=== PATIENT | female | born 1945 | race Caucasian/White ===

== ENCOUNTER 2019-01-12 08:30 | Day surgery (SDC) | payer OTHER, MEDICARE ==
[~2019-01-12] VITALS: Ht 157.5 cm; Wt 83.9 kg
[~2019-01-12 08:30] MED LIST: ALEVE220 M1 PO; ALEVE220 MG PO; ASPIR 8181 MG PO; ASPIRIN EC325 MG PO; ASPIRIN EC81 MG PO; BASAGLAR K100 UNIT/1 SUB-Q; CEFTIN500 MG PO; CEFUROXIME250 MG PO; CIPRO500 MG PO; FLAGYL500 MG PO; FUROSEMIDE80 MG PO; GLIPIZIDE ER2.5 MG PO; GLIPIZIDE10 MG PO; GUAIFENESIN400 MG PO; HYDROCODON-ACE1 EA11 PO; IBUPROFEN400 MG PO; IPRAT-ALBUT 0.5-3 ML INH; KLOR-CON M2020 MEQ PO; LANTUS100 UNITS/ SUB-Q; LASIX20 MG PO; LASIX40 MG PO; LEVOTHYROXINE75 MCG PO; LIPITOR40 MG PO; MAGNESIUM400 MG PO; METFORMIN HCL1000 MG PO; METFORMIN HCL500 M1 PO; METOPROLOL TAR100 MG PO; METOPROLOL TART50 MG PO; MIRALAX17 GM PO; MULTIVITAMINS1 EAC7 PO; NITROSTAT0.4 MG SL; NORCO 5-325 TA1 EACH PO; NORCO 7.5-3251 EACH PO; OMEPRAZOLE40 MG PO; OXYCODONE HCL5 MG PO; POTASSIUM CHLO10 ME1 PO; PROLENSA1.6 ML OP; SIMVASTATIN20 MG PO; TOPROL XL50 MG PO; TRAMADOL HCL50 MG PO; TRIAMCINOLONE A15 GM TOP; TYLENOL EXTRA500 M1 PO; TYLENOL EXTRA500 MG PO; VALERIAN450 MG PO; VIMOVO 500-201 EACH PO; VITAMIN B122500 MCG PO; VITAMIN D2000 UNI1 PO; XARELTO10 MG PO; ZOCOR20 MG PO
[2019-01-12] MEDS ORDERED: NAPROXEN500 MG PO (09:31)
[2019-01-12] MEDS ORDERED: HYDROCODON-ACE1 EA11 PO (09:31)
--- NOTE | 2019-01-12 10:02 | NUR ---
01/12/19 1002 Tea Allan 1190 PT ARRIVED IN PACU SLEEPY WITH NO C/O'S. BLOOD SUGAR 155 ON ARRIVAL. 0950 ICE TO L KNEE. ENCOURAGED COUGH, DEEP BREATHING. 1000 O2 AT 2L VIA NC PLACED. TAKING SIPS OF WATER.
--- NOTE | 2019-01-12 10:21 | NUR ---
PT IS BACK TO DS FROM PACU. DAUGHTERS ARE AT THE BEDSIDE. WATER ON BEDSIDE TABLE. PT IS REQUESTING COFFEE. CALL LIGHT WITHIN REACH. NO ADDITIONAL NEEDS.
--- NOTE | 2019-01-12 11:20 | NUR ---
PT IS REPORTING NAUSEA. SHE IS GIVEN ALCOHOL PREP PAD. PT IS AGREEABLE TO TRYING CRACKERS. SHE IS WONDERING WHAT HER CBG IS. DAUGHTERS STILL AT BEDSIDE. CALL LIGHT WITHIN REACH NO ADDITIONAL NEEDS AT THIS TIME.
--- NOTE | 2019-01-12 12:42 | NUR ---
YELLOWING BRUISE NOTED TO PATIENT'S RIGHT ANTERIOR NICHOLS. PATIENT REPORTS SHE FELL AT HOME WHILE STANDING ON A BUNK BED LADDER. PATIENT IS UP TO THE BATHROOM WITH MY STANDBY. SHE AMBULATES WELL AND REPORTS "A LITTLE DIZZINESS."
--- NOTE | 2019-01-12 12:53 | NUR ---
OXIMETER CONNECTED AFTER PATIENT AMBULATES TO THE BATHROOM AND SHE IS 89% PATIENT REITERATES COPD AND STATES "THIS HAPPENS AFTER SURGERY." PATIENT ENCOURAGED TO COUGH AND DEEP BREATHE PERIODICALLY AND SHE VERBALIZES UNDERSTANDING. DISCHARGE INSTRUCTIONS HAVE BEEN GIVEN AND PATIENT VERBALIZES UNDERSTANDING. ICE BAG RENEWED. PATIENT IS GETTING DRESSED.
--- NOTE | 2019-01-12 13:57 | NUR ---
PT IS TAKEN TO CAR VIA WC, SHE IS ABLE TO TRANSFER HERSELF FROM WC TO CAR.
--- NOTE | 2019-01-12 15:30 | OR ---
[facility] [address] [place], [place] [address] Signed DATE OF OPERATION: 01/12/2019 SURGEON: An Soler MD PREOPERATIVE DIAGNOSIS: Medial meniscus tear, right knee. POSTOPERATIVE DIAGNOSIS: Medial meniscus tear, right knee. PROCEDURE PERFORMED: Right knee arthroscopy with partial medial meniscectomy. SOLO TRUCK DRIVER: Coni Andres PA-C. Coni was present and critical for all portions of procedure. ANESTHESIA: General. BLOOD LOSS: Minimal. TOURNIQUET TIME: None. BRIEF HISTORY: Meg is a 73-year-old female with pain and locking in her knee. She had only grade 1 to grade 2 changes on her x-rays and her MRI showed a large inferiorly folded medial meniscus tear. Risks and benefits of operative treatment were discussed with her and she elected to proceed. Once consent was obtained, she was taken to the operating room. After adequate anesthesia, she was placed on operating room table. All downside pressure points were well padded. The right leg was flexed, abducted, and externally rotated on a well-padded leg leavitt. Left was placed in well-padded proximal thigh leavitt. The portal sites were pre-injected using 0.25% Marcaine with epinephrine under alcohol prep. The leg was then prepped and draped in a standard sterile fashion. The standard inferolateral and superolateral portals were made. The scope was introduced into the knee. ARTHROSCOPIC FINDINGS: Electronically Signed By: AN SOLER MD 01/12/19 1530 PATIENT NAME: MEG SEGURA OPERATIVE REPORT DATE OF : 45 REPORT #: [id number] PHYSICIAN: AN SOLER MD PCP: REYNA MEADOWS MD REPORT IS CONFIDENTIAL AND NOT TO BE RELEASED WITHOUT AUTHORIZATION [facility] [address] [place] [id number] Signed Moderate synovitis was noted throughout the knee. 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 Medial and lateral gutters were clear. ACL was intact. The lateral compartment was intact with only grade 1 chondromalacia to the lateral femoral condyle. The medial compartment showed grade 3 chondromalacia to the femur, grade 1 changes to the tibia. There was a large infolded medial meniscus tear with significant surrounding synovitis. DESCRIPTION OF OPERATION: Standard inferomedial portal was made after localization using a spinal needle. The straight biter was then used to trim the meniscus tear back and flipped the undersurface up and this was shaved off using the shaver and all debris was evacuated. The meniscus was then smoothed out and feathered, and the scope was withdrawn. Portals were closed with 3-0 nylon and dressed with Adaptic ABD and Yusef wrap. We injected the knee with 60 mg Toradol at the end of the case. She tolerated the procedure well. All sponge, needle, and instrument counts were correct. An Soler MD BA/ROBLESL /[id number] Copies: ~ Electronically Signed By: AN SOLER MD 01/12/19 1530 PATIENT NAME: MEG SEGURA OPERATIVE REPORT DATE OF : 45 REPORT #: [id number] PHYSICIAN: AN SOLER MD PCP: REYNA MEADOWS MD REPORT IS CONFIDENTIAL AND NOT TO BE RELEASED WITHOUT AUTHORIZATION
== END 2019-01-12 13:45 | disposition home or self-care (01) ==
LOC: DS 08:30 → OPS 08:30 → DS 09:00 → OPS 09:45 → DS 09:45 → OPS 11:30
PROVIDERS: Specialist
PROC: 0SBC4ZZ Excision of Right Knee Joint, Percutaneous Endoscopic Approach (ICD-10-PCS; principal; 2019-01-12 13:30)
DX: S83.241A Other tear of medial meniscus, current injury, right knee, initial encounter (principal); M65.9 Synovitis and tenosynovitis, unspecified; M22.41 Chondromalacia patellae, right knee; E11.9 Type 2 diabetes mellitus without complications; I10 Essential (primary) hypertension; E78.00 Pure hypercholesterolemia, unspecified; E03.9 Hypothyroidism, unspecified; J44.9 Chronic obstructive pulmonary disease, unspecified; E66.9 Obesity, unspecified; G47.33 Obstructive sleep apnea (adult) (pediatric); I11.0 Hypertensive heart disease with heart failure; I50.9 Heart failure, unspecified; Z79.4 Long term (current) use of insulin; Z88.0 Allergy status to penicillin; Z88.2 Allergy status to sulfonamides; Z99.89 Dependence on other enabling machines and devices; Z68.33 Body mass index [BMI] 33.0-33.9, adult; Z79.82 Long term (current) use of aspirin; Z79.899 Other long term (current) drug therapy; Z87.891 Personal history of nicotine dependence
CPT/HCPCS: 01400; A9270; J0690; J1100; J1885; J2250; J2310; J2405; J2704; J2765; J3010; J7121

== ENCOUNTER 2019-05-30 17:27 | Inpatient (IN) | payer MEDICARE, OTHER ==
[~2019-05-30] VITALS: Ht 157.5 cm; Wt 84.8 kg
[~2019-05-30 17:27] MED LIST changes: +MAGNESIUM400 M1 PO; -MAGNESIUM400 MG PO; -MULTIVITAMINS1 EAC7 PO; +MULTIVITAMINS1 EAC8 PO; +NAPROXEN500 MG PO
[2019-05-30] MEDS ORDERED: MUCINEX600 MG PO (17:54)
--- NOTE | 2019-05-30 23:48 | NUR ---
PT INFORMED SHE HAS 15 MIN LEFT UNTIL NPO.
--- NOTE | 2019-05-31 00:02 | NUR ---
PT ARRIVED TO [facility] AT 2135 ON THE STRETCHER FROM ER. SHE WAS ABLE TO TRANSFER HERSELF TO BED. VOIDED. DENIED NAUSEA AND STATED HER PAIN IMPROVED. IV PATENT, FLUSHED WITH 10 ML OF NS WITHOUT ANY DIFFICULTIES, DRESSING INTACT. STARTED PT ON LR ORDERED. BG UPON ARRIVAL TO [facility] 55. PT GOT SNACKS, BG WENT UP TO 147. VSS. MAINTANS SPO2 92%-93% ON RA. PT IS NPO FROM MIDNIGHT. LIQUIDS AND FOOD REMOVED OUT OF THE ROOM PT COOPERATIVE. WITH EYES CLOSED, RESTING COMFORTABLY. NO NEEDS AT THE MOMENT. CALL LIGHT IN REACH.
--- NOTE | 2019-05-31 00:39 | NUR ---
pt reported nausea. see mar for medications administration. after being medicated stated she "feels better". will be back to reassess.
--- NOTE | 2019-05-31 02:12 | NUR ---
pt awake, bg 102, no insulin needed per sliding scale. SPO2 88-89% ON RA. PUT PT ON 1.5L OF O2. SPO2 WENT UP TO 93-94%.PT DENIED PAIN, NO NAUSEA. NO NEEDS AT THE MOMENT. CALL LIGHT IN REACH.
--- NOTE | 2019-05-31 05:22 | NUR ---
PT OPENS HER EYES TO VOICE, ALERT, ORIENTED. NO NAUSEA, REPORTED SOME DISCOMFORT. ABDOMEN IS TENDER, BOWEL SOUNDS HYPERACTIVE IN UPPER QUADRANT. EDEMA NOTED IN HANDS BILATERAL. BP 106/47. STILL ON 1.5 L OF O2. AMBULATEDTO THE BATHROOM, SPO2 DROPPED TO 98% ON RA. PT WAS HELPED WITH PREP FOR SURGERY,CLEAN GAWN WAS PROVIDED.
--- NOTE | 2019-05-31 06:38 | NUR ---
PT REPORTED NAUSEA DURING THIS SHIFT. SEE MAR ADAN MEDCIATION ADMINISTRATION. DENIED PAIN BUT REPORTED DISCOMFORT IN HER UPPER ABDOMEN. BOWEL SOUNDS PRESENT, HYPERACTIVE IN UPPER QUADRANTS. PT AMBULATED TO THE BATHROOM TWICE, VOIDED WITHOUT DIFFICULTIES. PT HAD SLEEP APNEA, USES CPAP AT HOME. SPO2 DROPPED DOWN TO 86%. PUT PT ON 1.5 L OF O2. SPO2 UP TO 92-93%. PT DONE WITH PREOP.
--- NOTE | 2019-05-31 07:38 | NUR ---
REPORT RECEIVED FROM NUSRAT CROWLEY. PT AWAKE, SITTING UP IN BED. STATES SHE FEELS BETTER THAN LAST NIGHT.
--- NOTE | 2019-05-31 09:15 | NUR ---
PT LEFT FOR SURGERY AT 0900. SEE MORNING ASSESSMENT. PT WAS HAVING NAUSEA, GAVE 4 MG ZOFRAN WAS NOT FEELING MUCH RELIEF YET. ANTIBIOTICS HANGING. SAO2 AT 97% ON 1.5 L. MAGNESIUM COMPLETE.
--- NOTE | 2019-05-31 10:41 | NUR ---
PT TAKEN TO OR. WILL FOLLOW UPON RETURN FROM PACU
--- NOTE | 2019-05-31 11:40 | CONS ---
[facility] [address] [place], [place] [address] Signed DATE OF CONSULTATION: 05/31/2019 ADDITIONAL REFERRING PHYSICIAN: Ira Salguero MD CHIEF COMPLAINT: Right upper quadrant abdominal pain. 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 I helped her with a sigmoid colectomy with symptomatic diverticular disease. She still lives in her house out in [place] with her granddaughter. She drives and gets around quite well. She came to the emergency room yesterday with significant right upper quadrant and epigastric abdominal pain. It was associated with nausea and dry heaves. She also had not been able to eat or drink well that day. She had very little urine output. On exam, she was tender in the right upper quadrant and the epigastric area. White count was 10.6 with a sugar of 239. Her urinalysis was unremarkable and her liver function tests were unremarkable as well along with the lipase. Albumin is good at 4.1. She had an ultrasound of right upper quadrant. Sure enough, she has at least one stone and debris in the in the gallbladder with an unremarkable gallbladder wall an unremarkable common bile duct. There was no pericholecystic fluid. She stayed all day in our emergency room with IV fluids and pain control. Unfortunately, her symptoms would not wandy. Consequently, I was asked to admit her last evening after change in shifts by the ER physicians. She was given Levaquin and Rocephin and maintained on IV fluids overnight. She said this morning the pain is a little better, but she said the nausea is just terrible. PAST MEDICAL HISTORY: Diabetes, myocardial infarction, paroxysmal tachycardia, congestive heart failure, hypertension, hypercholesterolemia, gastroesophageal reflux disease, COPD, obstructive sleep apnea, hypothyroidism. PAST SURGICAL HISTORY: Adenoidectomy, left rotator cuff repair by Dr. Charles Soler in December 2018, cataract surgery, right total hip replacement, right total shoulder replacement, sigmoid colectomy for diverticular disease with Dr. Cadena. SOCIAL HISTORY: She quit smoking around age 60. She does not drink. Dr. Reyna You is her primary care provider. She has her hearing instrument specialist through [facility]. She is a retired registered nurse with two daughters. Her oldest daughter Agnes is at [phone]. She also has a younger daughter Ronda. She still drives herself in and out of town and so forth. She prefers to [facility]. Electronically Signed By: SUGAR CADENA MD 05/31/19 1140 PATIENT NAME: MEG SEGURA CONSULTATION DATE OF : 45 REPORT #: [id number] PHYSICIAN: SUGAR CADENA MD PCP: REYNA YOU MD REPORT IS CONFIDENTIAL AND NOT TO BE RELEASED WITHOUT AUTHORIZATION [address] [address] Signed FAMILY HISTORY: Mom had diabetes, had a stroke at around age 65 and by age 72. Dad had coronary artery disease. Her older daughter Agnes has diabetes and had four cardiac stents. REVIEW OF SYSTEMS: She had 10 systems reviewed and we talked about her SD, a number of years ago, the diabetes, arrhythmias, and heart failure. She thinks her heart actually is pretty strong. Her last echocardiogram was about two years ago through [facility]. We are trying to obtain those results currently. She told me she can walk in and out of the parking lot in [employer] and so forth and does fine without shortness of breath. We also talked about her orthopedic surgeries and she did well with those particular last fall. We just did her colectomy five or six years ago and she did well with that. ALLERGIES: DuoNeb, penicillin, sulfa. MEDICATIONS: Naproxen, omeprazole, multivitamin, glipizide, metformin, nitroglycerin, levothyroxine, metoprolol, vitamin B12, aspirin, atorvastatin, vitamin D, magnesium oxide, potassium chloride, Lasix, insulin, and guaifenesin. PHYSICAL EXAMINATION: VITAL SIGNS: Her blood pressure is 106/48, heart rate 86, respiratory rate 18, temperature 97.7. She is 96% on room air. She is 5 feet 2 inches, 84 kg. GENERAL: Meg is a 74-year-old female appears her stated age. She is an excellent historian. Given the fact, she is a retired clinical registered nurse, she does not appear systemically ill or toxic. She is not jaundiced. She is not short of breath. She has no pursed lips. No increased work of breathing. LUNGS: Generally clear to auscultation bilaterally. HEART: Regular rate and rhythm without murmurs. ABDOMEN: Obese and soft. No evidence of incisional hernia. She is a little tender in the right upper quadrant epigastric area. LABORATORY DATA: Her white blood cell count 10.6, hemoglobin 13, neutrophils 78, platelets 335. BUN 17, creatinine 0.79, glucose between 55 and 147. Urinalysis was unremarkable. Magnesium low at 1.2 and being replaced. Total bilirubin normal at 0.4, AST 16, ALT 14, alkaline phosphatase 64, albumin 4.1, lipase 26. RADIOGRAPHIC STUDIES: Ultrasound of the right upper quadrant reviewed and she has mobile stone and debris, but the common bile duct is unremarkable. The gallbladder wall is not thickened. There is no pericholecystic fluid. Electronically Signed By: SUGAR CADENA MD 05/31/19 1140 PATIENT NAME: MEG SEGURA CONSULTATION DATE OF : 45 REPORT #: [id number] PHYSICIAN: SUGAR CADENA MD PCP: REYNA YOU MD REPORT IS CONFIDENTIAL AND NOT TO BE RELEASED WITHOUT AUTHORIZATION [facility] [address] [place], [place] [address] Signed ASSESSMENT AND PLAN: Meg is a 74-year-old female, who presents with probably chronic cholecystitis and cholelithiasis with biliary colic and nausea. Even with IV fluids, pain control, some antibiotic she is still having significant nausea and the pain is yet to wandy. I had a long discussion with Meg regarding the location and function of the gallbladder. We discussed laparoscopic versus open cholecystectomy. There is risk including, but not limited to bleeding, infection, scarring, change in contour of the skin, damage to bowel damage to main bile duct, incisional hernias and other unforeseen comorbidities such as pulmonary, cardiac, and deep vein thrombosis. We are also in the midst of our coronavirus pandemic. She knows that 98% of these folks would go home within 2-6 hours following the surgery. She has expressed understanding and would like to proceed with remove of the gallbladder. Sugar Cadena MD ALB/MODL /[id number] cc: MD Sugar Edwards MD Copies: REYNA YOU MD, ANDREW L MD ~ Electronically Signed By: SUGAR CADENA MD 05/31/19 1140 PATIENT NAME: MEG SEGURA CONSULTATION DATE OF : 45 REPORT #: [id number] PHYSICIAN: SUGAR CADENA MD PCP: REYNA YOU MD REPORT IS CONFIDENTIAL AND NOT TO BE RELEASED WITHOUT AUTHORIZATION
--- NOTE | 2019-05-31 11:58 | NUR ---
05/31/19 1158 Sheets,Pura 1149 PT ARRIVED TO PACU ON 6L VIA MASK, RESP EVEN AND UNLABORED. PT WAKES TO TACTILE STIMULI AND IS REORIENTED TO PACU. PT DENIES PAIN AND FALLS BACK TO SLEEP, VSS. 1157 PT REPORTS NAUSEA.
--- NOTE | 2019-05-31 12:47 | NUR ---
PT BACK FROM SURGERY. ARRIVED SLEEPING, RESPIRATIONS EVEN AND NON LABORED. PT AWAKES TO VERBAL STIMULI. VITAL SIGNS ARE STABLE AT THIS TIME, CPOX INTACT OXYGEN SAT IS 93% ON 4 L. X4 LAP SITED NOTED TO ABD; CDI-SEE ASSESSMENT CHARTING. PT DENIES NEED TO VOID. NO REPORTED PAIN. PERSONAL SUPPLIES AND CALL LIGHT WITHIN REACH. ICE OVER INCISIONAL SITES. SCD'S INTACT. PERSONAL SUPPLIES AND CALL LIGHT WITHIN REACH.
--- NOTE | 2019-05-31 13:45 | NUR ---
PT REPORTING SHARP CHEST PAIN RADIATING TO LEFT SHOULDER, PAIN LEVEL OF 7/10. THIS RN AND TYLER, RN AT BEDSIDE. DR. CADENA IMMEDIATELY NOTIFIED, NEW ORDERS RECEIVED; EKG STAT, TROPONIN, CBC, MAG, PHOS. INSTRUCTED BY DR. CADENA TO CALL HOSPITALIST FOR CONSULT. DR. LINN CALLED AND RAPID RESPONSE INITIATED. TORB TO ADMIIN MORPHINE 2MG IVP. MORPHINE 2MG IVP ADMIN. 1350 DR. LINN TO ROOM FOR THIS REPORTED CHEST PAIN. RAPID RESPONSE TEAM PRESENT; SAMMY, RN, MICHELE, RN, HUNG RN, DEMI, RT, PHARMACY AND THIS RN. EVENTS OCCURED FOLLOWED; EKG AND LAB COMPLETED. 5MG IVP LOPRESSOR ADMIN AND FLUSHED, EKG READ SR-SEE EKG. @1400 BG OF 218, NITRO 1INCH ORDERED, LABS DRAWN. @1401 PT CONTINUES TO REPORT 6/10 CHEST PAIN; 1INCH NITRO PLACED, PT DENIES SOB. @1402 SECOND DOSE 5MG LOPRESSOR IVP ORDERED AND GIVEN, 10ML FLUSH COMPLETED. @1404 PAIN REPORTED 5/10 CHEST PAIN; ANOTHER NITRO PATCH 1INCH ORDERED AND PLACED. @1408 MAGNESIUM 2MG PIGGYBACK ORDERED AND PHARMCY TO BRING, 3RD DOSE OF 5MG IVP LOPRESSOR ORDERED AND ADMIN WITH FLUSH, PROTONIX 40MG IVP ORDERED. @1412 3 (81)MG PO ASA ORDERED. @1413 MAGNESIUM 2MG IVP STARTED IV PIGGYBACK STARTED WELL PROTONIX 40MG IVP ADMIN PER DOC ORDER. ASA (3) 81MG PO ADMIN; CHEST PAIN REPORTED 3/10 NOW. @1418 2ND EKG ORDERED AND COMPLETED. @1422 MORPHINE 2MG IVP ADMIN PER DOC ORDER. CHEST PAIN REPORTED AT 2-3/10 NOW. NEW ORDER FOR TELE AND ECHO. NAUSEA AND PAIN REPORTED OK @ 1429. @1427 VORD FOR FLUIDS TO DECREASED TO TKO AND CHEST PAIN IS 2/10, NO ARM RADIATION AND NAUSEA REPORTED. TELE PLACED. CPOX INTACT. PT AWAKE AND INTERACTIVE WITH STAFF. NO NEW ORDERS AT THIS TIME. PT INSTRUCTED TO CALL STAFF IF SHE HAS ANY NEEDS. ECHO STUDY IN PROCESS AT THIS TIME. VS ARE STABLE. WILL CONTINUE TO MONITOR.
--- NOTE | 2019-05-31 13:49 | NUR ---
PT 1 HOUR VS RETURNING FROM SURGERY DONE. HR 112. PT COMPLAINING OF CHEST PAIN. STATES AT HOME SHE TAKE NITRO FOR IT. NS. DIMA CALLING DR TO NOTIFY AND SEE ABOUT ORDERS. EKG ORDERED.
--- NOTE | 2019-05-31 14:00 | NUR ---
Attempted to see pt, but multiple staff members are in her room. Will return later. Notified rapid response team has been called.
--- NOTE | 2019-05-31 14:09 | NUR ---
RAPID RESPONSE TEAM CALLED FOR PT. OFFERED PRAYER FOR PT AND TEAM. WILL FOLLOW UP
--- NOTE | 2019-05-31 14:58 | NUR ---
ECHO IN PROCESS AT THIS TIME.
--- NOTE | 2019-05-31 15:14 | NUR ---
MED REC COMPLETE
[2019-05-31] MEDS ORDERED: NORCO 5-325 TA1 EACH PO (15:16)
--- NOTE | 2019-05-31 15:51 | NUR ---
PT. IN BED. RT SETTING UP CPAP. ECHO JUST FINISHED WITH PT. NAUSEA WITH MOVEMENT STILL. PAIN A 4/10 WHICH IS A TOLERABLE NUMBER FOR HER. JELLO AND WATER ON TABLE. NO CHEST PAIN OR SOB.
--- NOTE | 2019-05-31 16:00 | NUR ---
PT REPORTS STILL FEELING NAUSIOUS. SHE DOES NOT WANT ANY MEDICATION FOR THIS AT THIS TIME.
--- NOTE | 2019-05-31 16:34 | NUR ---
RAPID RESPONSE VS PLACED IN ELECTRONIC CHART, HOWEVER THEY WILL NOT RECORD FOR THE CORRECT TIME. RAPID RESPONSE FLOW SHEET PLACED IN CHART FOR RECORDS.
--- NOTE | 2019-05-31 17:04 | NUR ---
PT SITTING UP IN BED, A&OX4. PT DENIES SOB, OXYGEN SAT 92% ON 4L NC. PT DENIES CHEST PAIN. VS STABLE AT THIS TIME. DINNER ORDERED. PT DENIES NEED TO VOID. WILL CONTINUE TO MONITOR. DRESSING(s) TO ADB ARE ALL CDI. ICE OVER INCISIONS. CALL LIGHT WITHIN REACH.
--- NOTE | 2019-05-31 18:40 | NUR ---
IV NITROGLYCERIN AND HEPARIN DRIP STARTED- SEE EMAR. NEW IV STARTED FOR HEPARIN DRIP. PT'S VS TAKEN PRIOR TO STARTING NITRO DRIP. VORB TO REMOVE NITRO PATCHED PRIOR TO STARTING NITRO DRIP; REMOVED PRIOR TO INITIATING NITRO IV DRIP.
--- NOTE | 2019-05-31 18:45 | NUR ---
REPORT PROVIDED TO EMS TRANSFER CREW. PT LEFT UNIT IN THEIR CARE.
--- NOTE | 2019-05-31 21:36 | EKG ---
[facility] [address] [facility] [place] [address] Signed Normal sinus rhythm Minimal voltage criteria for LVH, may be normal variant T wave abnormality, consider lateral ischemia Abnormal ECG When compared with ECG of 01-JAN-2019 11:22, Criteria for Septal infarct are no longer present T wave inversion no longer evident in Anterior leads Confirmed by DENISSE LINN MD ([id number]) on 05/31/2019 9:36:40 PM Electronically Signed By: DENISSE LINN MD 05/31/19 2136 PATIENT NAME: RENEE SEGURA Electrocardiogram DATE OF : 45 PHYSICIAN: DENISSE LINN MD REPORT #: [id number] REPORT IS CONFIDENTIAL AND NOT TO BE RELEASED WITHOUT AUTHORIZATION
--- NOTE | 2019-05-31 21:37 | EKG ---
[facility] [address] [facility] [place], [place] [address] Signed Normal sinus rhythm T wave abnormality, consider lateral ischemia Prolonged QT Abnormal ECG When compared with ECG of 31-MAY-2019 13:54, (Unconfirmed) No significant change was found Confirmed by DENISSE LINN MD ([id number]) on 05/31/2019 9:36:57 PM Electronically Signed By: DENISSE LINN MD 05/31/19 2137 PATIENT NAME: RENEE SEGURA Electrocardiogram DATE OF : 45 PHYSICIAN: DENISSE LINN MD REPORT #: [id number] REPORT IS CONFIDENTIAL AND NOT TO BE RELEASED WITHOUT AUTHORIZATION
--- NOTE | 2019-05-31 21:37 | EKG ---
[facility] [address] [place] [address] Signed Sinus tachycardia Nonspecific T wave abnormality Abnormal ECG When compared with ECG of 31-MAY-2019 08:19, (Unconfirmed) Vent. rate has increased BY 40 BPM Confirmed by DENISSE LINN MD ([id number]) on 05/31/2019 9:36:49 PM Electronically Signed By: DENISSE LINN MD 05/31/19 2137 PATIENT NAME: RENEE SEGURA Electrocardiogram DATE OF : 45 PHYSICIAN: DENISSE LINN MD REPORT #: [id number] REPORT IS CONFIDENTIAL AND NOT TO BE RELEASED WITHOUT AUTHORIZATION
--- NOTE | 2019-06-01 06:27 | OR ---
[facility] [address], [place] [address] Signed DATE OF OPERATION: 05/31/2019 SURGEON: Sugar Cadena MD PREOPERATIVE DIAGNOSES: Acute on chronic cholecystitis with cholelithiasis. POSTOPERATIVE DIAGNOSES: Acute on chronic cholecystitis with cholelithiasis. PROCEDURE: Laparoscopic cholecystectomy with intraoperative cholangiogram. ESTIMATED BLOOD LOSS: Minimal. FINDINGS: Meg had a friable gallbladder wall. The intraoperative cholangiogram was unremarkable. She had three stones, each measuring 4 to 6 mm in diameter. She also had periumbilical adhesions from her previous open sigmoid colectomy for diverticular disease. It took just a few minutes to work our way around those adhesions to place the Liyah trocar. INDICATIONS: Mge is a 74-year-old female, who is now a retired registered nurse. I have known Meg for quite a few years. Five to seven years ago, I did her open sigmoid colectomy for diverticular disease. She said she is doing much better and has good bowel movements. In the meantime, she had her left shoulder surgery last fall. She talked about her cardiac evaluation with Dr. Flower. We did review that. It goes back to 2017. In that regard, her heart, lungs and pulmonary status really have not changed. She came to us with 1-day history of severe epigastric and right upper quadrant abdominal pain with nausea and dry heaves. In the emergency room, her vital signs were fine. She seemed to be tender in the right upper quadrant and the epigastric area. White count was 10.6 and her liver function tests were fine. She had an ultrasound of right upper quadrant performed and there were several mobile stones with some sludge and debris. The gallbladder wall was not thickened. The common bile duct was not dilated. I have been asked to admit her as a general surgeon on-call. She was given antibiotics overnight. I met her early this morning. We had a long discussion regarding her current findings. We discussed the location and of function of the gallbladder. We discussed laparoscopic versus open cholecystectomy. She understands expected intraop Electronically Signed By: SUGAR CADENA MD 06/01/19 0627 PATIENT NAME: MEG SEGURA OPERATIVE REPORT DATE OF : 45 REPORT #: [id number] PHYSICIAN: SUGAR CADENA MD PCP: REYNA MEADOWS MD REPORT IS CONFIDENTIAL AND NOT TO BE RELEASED WITHOUT AUTHORIZATION [facility] [address], [place] [address] Signed and postop course. There is risk of surgery including, but not limited to bleeding, infection, scarring, change in contour of the skin, damage to bowel, damage to main bile duct, incisional hernias and other unforeseen seen comorbidities including cardiac and pulmonary issues along with deep vein thrombosis. Also, we are in the midst of the valerio pandemic and she is well aware of that in addition. She had expressed understanding and wished to proceed. PROCEDURE NOTE: Meg was taken into the operating room and placed in the supine position under general endotracheal tube anesthesia. She was already on preoperative antibiotics along with subcutaneous heparin. SCDs were in place. She was prepped and draped in the usual sterile fashion. It took a few extra minutes to place a Liyah trocar above the umbilicus to a short vertical incision due to the adhesions. We had placed the Liyah trocar and point it toward the left upper quadrant and bring it underneath the falciform ligament over to get around some of the adhesions around the umbilicus. Otherwise, the upper abdomen was completely free of adhesions. We then placed the two right subcostal and subxiphoid trocar sites. Trocars without difficulty. The gallbladder was grasped and elevated in the right upper quadrant. The triangle of Calot was dissected free and a clip had been placed across the cystic artery and it was divided. The intraoperative cholangiocatheter was inserted into the cystic duct. An intraoperative cholangiogram was then performed. The contrast flowed nicely through the duct and out into the duodenum. There was no evidence of any filling defects. With pressure there was just a little bit of extravasation of contrast around the cystic duct. After this, the cystic duct stump was secured with a PDS Endoloop and 2 clips were placed across the cystic duct stump to deanna its location. The gallbladder was then removed from the gallbladder fossa with the help of cautery and placed into the EndoCatch bag. The gallbladder fossa in the right upper quadrant irrigated and suctioned out until clear. We used our laparoscopic suturing device to pass 0 Vicryl suture on either side of the fascia of the subxiphoid trocar site. This was tied down to close this fascia primarily. After this, all the gas was allowed to escape and all the trocars were removed. We then closed the midline fascia with multiple interrupted [id number] and simple 0 Vicryl sutures. That fascial incision was about twice as long as normal. It was probably 2.5 to 3 cm in length total. We could not appreciate any damage to the underlying bowel. Local anesthetic was then copiously injected into all trocar sites. The skin and dermis of each trocar site were then closed with interrupted 3-0 subcuticular Monocryl sutures. Dry gauze and tape were applied in all incisions. Meg was awakened from anesthesia, extubated in the OR, and taken to recovery room in stable condition. Sugar Cadena MD Electronically Signed By: SUGAR CADENA MD 06/01/19 0627 PATIENT NAME: MEG SEGURA OPERATIVE REPORT DATE OF : 45 REPORT #: [id number] PHYSICIAN: SUGAR CADENA MD PCP: REYNA MEADOWS MD REPORT IS CONFIDENTIAL AND NOT TO BE RELEASED WITHOUT AUTHORIZATION [address] [place], [place] [address] Signed [facility] /[id number] cc: MD Rachel Mcmahon MD Jonathan Hitzman, MD Copies: SUGAR CADENA MD, ABDELAZIM O MD HITZMAN, JONATHAN MD ~ Electronically Signed By: SUGAR CADENA MD 06/01/19 0627 PATIENT NAME: MGE SEGURAS OPERATIVE REPORT DATE OF : 45 REPORT #: [id number] PHYSICIAN: SUGAR CADENA MD PCP: REYNA MEADOWS MD REPORT IS CONFIDENTIAL AND NOT TO BE RELEASED WITHOUT AUTHORIZATION
== END 2019-05-31 18:45 | disposition short-term general hospital (02) | DRG 313 ==
LOC: ED 17:27 → MS 17:28
PROVIDERS: ADMIT Colon & Rectal Surgery
DX: R07.2 Precordial pain (principal); I47.1 Supraventricular tachycardia; G89.18 Other acute postprocedural pain; E11.9 Type 2 diabetes mellitus without complications; I25.2 Old myocardial infarction; I11.0 Hypertensive heart disease with heart failure; I50.9 Heart failure, unspecified; E78.5 Hyperlipidemia, unspecified; K21.9 Gastro-esophageal reflux disease without esophagitis; J44.9 Chronic obstructive pulmonary disease, unspecified; G47.33 Obstructive sleep apnea (adult) (pediatric); E03.9 Hypothyroidism, unspecified; Z87.891 Personal history of nicotine dependence; Z90.49 Acquired absence of other specified parts of digestive tract; Z88.0 Allergy status to penicillin; Z88.2 Allergy status to sulfonamides; Z88.8 Allergy status to other drugs, medicaments and biological substances; Z79.82 Long term (current) use of aspirin; Z79.4 Long term (current) use of insulin; Z79.899 Other long term (current) drug therapy
CPT/HCPCS: 00790; 36415; 74300; 76705; 80053; 81001; 83690; 83735; 84100; 84484; 85025; 85610; 85730; 93005; 93010; 93306; 94660; 94762; 96365; 96375; 96376; 99285-25; C9113; J0696; J1100; J1170; J1644; J1815; J1885; J1956; J2001; J2270; J2370; J2405; J2704; J3010; J3475; J7121; Q9957; Q9967

== ENCOUNTER 2019-09-28 17:53 | Inpatient (IN) | payer MEDICARE, OTHER ==
[~2019-09-28] VITALS: Ht 157.5 cm; Wt 84.8 kg
[~2019-09-28 17:53] MED LIST changes: +MUCINEX600 MG PO
[2019-09-28] MEDS ORDERED: AMIODARONE HCL200 MG PO (18:06)
[2019-09-28] MEDS ORDERED: ELIQUIS5 MG PO (18:07)
--- NOTE | 2019-09-28 19:34 | EKG ---
[facility] [address] [facility] [place] [address] Signed Sinus bradycardia T wave abnormality, consider lateral ischemia Abnormal ECG When compared with ECG of 31-MAY-2019 14:17, Vent. rate has decreased BY 32 BPM QT has shortened Confirmed by DENISSE LINN MD ([id number]) on 09/28/2019 7:33:51 PM Electronically Signed By: DENISSE LINN MD 09/28/19 1934 PATIENT NAME: RENEE SEGURA Electrocardiogram DATE OF : 45 PHYSICIAN: DENISSE LINN MD REPORT #: [id number] REPORT IS CONFIDENTIAL AND NOT TO BE RELEASED WITHOUT AUTHORIZATION
--- NOTE | 2019-09-28 21:15 | NUR ---
RECIEVED REPORT ON PT FROM ED.
--- NOTE | 2019-09-28 21:40 | NUR ---
pt ARRIVES TO MS VIA STRETCHER AT 2100. STANDING WEIGHT 87.3 KG. ORIENTATION TO ROOM PROVIDED. VSS. TELE [address] SBA TO RESTROOM FOR VOID AND BACK TO BED. SANDWICH BOX PROVIDED BY DISEASE MANAGEMENT NURSE RN. CALL LIGHT IN REACH.
--- NOTE | 2019-09-28 21:40 | NUR ---
PT TO FLOOR FROM ED. CHARGE IN ROOM. INTRODUCED TO PT. NO REQUETS AT THIS TIME. CLAL LIGHT IN REACH
--- NOTE | 2019-09-28 23:46 | NUR ---
PT USES CALL LIGHT APPROPRIATLY. REQUEST TO USE RESTROOM AND GET INTO BED. STAND BY ASSIST TO RESTROOM. DENTURES IN BATHROOM NEXT TO SINK. PT IN BED WITH HOB FULLY ELEVATED. CALL LIGHT IN REACH.
--- NOTE | 2019-09-29 02:41 | NUR ---
PT. SITTING UP IN BED, STATED SHE JSUT WOKE UP WITH THE TV ON. PT TURNED TV OFF AND REQUESTED ASSISTANCE TO BATHROOM. PT VOIDED, AND BACK TO BED. OBSERVED DEEP BREATHS AND DYSPNEA ON EXERTION. PT BACK TO BED WITH HOB ELEVATED 90. CALL LIGHT IN REACH
--- NOTE | 2019-09-29 03:12 | NUR ---
pt AWAKE, READING BOOK. VSS. DENIES TOILETING OR ADDITIONAL NEEDS. CALL LIGHT IN REACH.
--- NOTE | 2019-09-29 05:16 | NUR ---
PT HAD A GOOD NIGHT, ABLE TO GET MUCH NEEDED REST. PT UP ONCE AT HS TO RESTROOM, AMBULATES WITH SBA. PT ON 2LNC. PT ON TELEY 5 FOR OBSERVATION.
--- NOTE | 2019-09-29 07:48 | NUR ---
MORNING ASSESSMENT DONE. PATIENT UP TO CHAIR FOR BREAKFAST, DENIES PAIN OR NAUSEA, BREAKFAST IS ORDERED. PATIENT IS WEARING 2L O2 AT THIS TIME.
--- NOTE | 2019-09-29 12:42 | NUR ---
PATIENT UP TO CHAIR FOR LUNCH, 3 UNITS OF NOVOLOG GIVEN FOR BLOOD GLUCOSE OF 195. PATIENT DOES NOT HAVE A GOOD APPETITE FOR LUNCH, ATE 20%.
--- NOTE | 2019-09-29 13:21 | NUR ---
PT SITTING IN CHAIR, O2 NC IN USE. PT IS ALERT, ORIENTED AND PLEASANT. PT ALITTLE DISCOURAGED, JUT DISCHARGED FROM ANOTHER HOSPITAL JUST A FEW DAYS AGO. TRYING TO STAY POSITIVE-GAVE REASSURANCE AND BLESSING. WILL FOLLOW
--- NOTE | 2019-09-29 14:03 | NUR ---
PATIENT SITTING IN THE CHAIR. SHOWER OFFERED IN THE MORNING. PATIENT SAIDE SHE WANTED TO WAIT. SHOWER OFFERED AT 1400 PATIENT SAID SHE IS TO TIRED. SHE DOESNT WANT A SHOWER OR A BED BATH. CALL LIGHT IN REACH. WATER REFRESHED. NO FURTHER NEEDS AT THIS TIME.
--- NOTE | 2019-09-29 14:43 | NUR ---
PATIENT SITTING UP TO CHAIR, SLEEPING WITH REGULAR RESPIRATION.
--- NOTE | 2019-09-29 15:19 | NUR ---
PATIENT WITH BLOOD GLUCOSE OF 45. PANCHITO ROWAN GRAHAM CRACKERS GIVEN. DR. LINN NOTIFIED.
--- NOTE | 2019-09-29 18:04 | NUR ---
PATIENT DOING WELL, NEW CHAIR PLACED IN ROOM.
--- NOTE | 2019-09-29 19:01 | NUR ---
RECEIVED REPORT FROM NUSRAT MEDINA. pt RESTING IN CHAIR. NO REQUESTS AT THIS TIME. CALL LIGHT WITHIN REACH. WHITEBOARD UPDATED.
--- NOTE | 2019-09-29 20:49 | NUR ---
IN TO DO ASSESSMENT. pt RESTING IN CHAIR. REPORTED A "HEAVYNESS ON MY CHEST" UNCHANGED FROM THE LAST WEEK. CRACKLES HEARD THROUGHOUT LUNGS. APICAL PULSE TAKEN, HR 47. pt REFUSED SS INSULIN AT THIS TIME, "I DON'T TAKE IT AT HOME AND I AM WORRIED THAT I WON'T KNOW MY SUGAR IS LOW WHEN I'M SLEEPING." EDUCATION DONE. SS NOT GIVEN (SEE MAR). ASSESSMENT DONE. I&O RECORDED. NO FURTHER REQUESTS AT THIS TIME. CALL LIGHT WITHIN REACH.
--- NOTE | 2019-09-29 22:51 | NUR ---
ROUNDED ON pt. RESTING IN BED. NO REQUESTS AT THIS TIME. CALL LIGHT WITHIN REACH.
--- NOTE | 2019-09-30 00:30 | NUR ---
TELE BATTERY LOW. pt UP TO VOID, GETTING BACK TO BED. BATTERY CHANGED. NO REQUESTS AT THIS TIME. CALL LIGHT WITHIN REACH.
--- NOTE | 2019-09-30 02:26 | NUR ---
ROUNDED ON pt. RESTING WITH EYES CLOSED, RESPIRATIONS REGULAR AND UNLABORED. 2L O2 IN PLACE. CALL LIGHT WITHIN REACH.
--- NOTE | 2019-09-30 04:30 | NUR ---
ROUNDED ON pt. RESTING WITH EYES CLOSED, RESPIRATIONS REGULAR AND UNLABORED. CALL LIGHT WITHIN REACH.
--- NOTE | 2019-09-30 05:50 | NUR ---
ASSESSMENT DONE. pt UP TO BE WEIGHED. VITALS AND I&O RECORDED. pt REPORTED THAT SHE IS "FEELING BETTER UNTIL I MOVE." FRESH WATER PROVIDED. NO FURTHER REQUESTS AT THIS TIME. CALL LIGHT WITHIN REACH
--- NOTE | 2019-09-30 08:30 | NUR ---
PT IS SITTING UP ON EDGE OF BED EATING BREAKFAST, STATES SHE FEELS ABOUT THE SAME THIS MORNING, CONT. TO BE SOB WITH EXHERTION, FAINT WHEEZES HEARD IN BASES, O2 AT 2L/NC, BLOOD SUGAR 68 THIS AM. CALL LIGHT IN EASY REACH.
--- NOTE | 2019-09-30 12:00 | NUR ---
PT SITTING UP FOR LUNCH, CONT. TO BE SOB WITH EXHERTION, METOLAZONE X1 GIVEN. DOES NOT REQUIRE INSULIN PER SC. DENIES ANY NEEDS.
--- NOTE | 2019-09-30 12:40 | NUR ---
Lengthy discussion with Meg. She lives alone and plans to discharge alone to her home. She has daughters who reside in [place] and will assister her. Her daughter Rnoda works for [employer]. Meg is frustrated as she is having difficulty paying her house payment, credit card, and covering the cost of her medications. She states she may need to stop some of her meds as it is more important to pay for her housing. I called and spoke with Rody and she is unable to assist with medicade for this patient. She suggest pt call Senior [employer] Disabled for assistance as they require specific infor Rody does not have. Senior and Disabled number given to Meg and encouraged her to call for assistance to have eval if she qualifies for Medicade as well as medicare. 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
--- NOTE | 2019-09-30 14:44 | NUR ---
PATIENT CALLED TO REPORT FEELING WEEK. RN AWARE, BLOODSUGAR AND VITALS CHECKED. ICE CHIPS AND EMESIS BAG PROVIDED. CALL LIGHT IN REACH, PATIENT AT SIDE OF BED.
--- NOTE | 2019-09-30 17:13 | NUR ---
VITALS AND I&OS CHARTED. PATIENT REPORTS HAVING FLUSHED @4 LOOSE STOOLS THIS AFTERNOON(THIS FARM EQUIPMENT ASSEMBLER DID NOT SEE) PATIENT SITTING AT SIDE OF BED EATING DINNER. CALLLIGHT IN REACH
--- NOTE | 2019-09-30 18:38 | NUR ---
PT STATES SHE IS FEELING MUCH BETTER, STATES SHE HAD NAUSEA AND SEVERAL SOFT STOOLS AFTER EATING DIABETIC PUDDING EARLIER, STATES THIS HAS HAPPENED BEFORE WHEN SHE EATS DIABETIC FOODS. ATE 100% OF DINNER. LAYING ON BED WATCHING TV. DENIES ANY NEEDS,
--- NOTE | 2019-09-30 19:20 | NUR ---
SHIFT REPORT RECEIVED FROM BHAVANI SILVERIO. PT RESTING IN BED. NC @ 2L. TELE HR SB @ 50. IV FLUSHED WITH SMALL LEAKAGE. IV REPOSITIONED AND WRAPPED. NO OTHER NEEDS AT THIS TIME. CALL LIGHT IN REACH.
--- NOTE | 2019-09-30 21:50 | NUR ---
ASSESSMENT, VS AND I&O COMPLETED. LUNGS CLEAR IN ALL LOBES AND DIMINISHED IN LOWER LOBES. BOWEL TONES ACTIVE. IV WNL, CDI, FLUSHED WELL. HR SB @ 51. SPO2 95% ON 2L NC. BLE EDMEA 1+, CMS INTACT. SCHEDULED MEDS PROVIDED. NO OTHER NEEDS AT THIS TIME. CALL LIGHT IN REACH.
--- NOTE | 2019-10-01 00:01 | NUR ---
PT RESTING IN BED, EYES CLOSED. RR EVEN, UNLABORED. NC @ 2L. HR SB @ 49. CALL LIGHT IN REACH.
--- NOTE | 2019-10-01 01:50 | NUR ---
PT RESTING IN BED, EYES CLOSED. RR EVEN, UNLABORED. NC @ 2L. HR SB @ 48. CALL LIGHT IN REACH.
--- NOTE | 2019-10-01 03:44 | NUR ---
PT RESTING IN BED, EYES CLOSED. RR EVEN, UNLABORED. NC @ 2L. HR SB @ 47. CALL LIGHT IN REACH.
--- NOTE | 2019-10-01 06:11 | NUR ---
VITALS AND I&OS DONE AND CHARTED. STANDING WEIGHT DONE AND CHARTED WELL. FRESH ICE WATER GIVEN, GARBAGES EMPTIED. PT NEEDS NOTHING MORE AT THIS TIME. BEDSIDE TABLE AND CALL LIGHT IN REACH.
--- NOTE | 2019-10-01 06:14 | NUR ---
ASSESSMENT, VS AND I&O COMPLETED. SCHEDULED MED PROVIDED. IV WNL. NC @ 2L. HR SB @ 54. LUNGS CLEAR IN UPPER LOBES, DIMINISHED IN LOWER LOBES. BOWEL TONES ACTIVE. BLE EDEMA 1+. ICE WATER PROVIDED. NO OTHER NEEDS AT THIS TIME. CALL LIGHT IN REACH.
--- NOTE | 2019-10-01 08:30 | NUR ---
PT ATE 100% OF BREAKFAST, STATES SHE CONT. TO FEEL SOB WITH ANY EXHERTION. LOST IV SITE AND IS DIFFICULT START. SPOKE WITH DR DUARTE AND WILL NEED LINE PLACED, ASKED IF I COULD HAVE SOBEIDA-NUSRAT PLACE A LINE.
--- NOTE | 2019-10-01 09:25 | NUR ---
VITALS AND I&OS CHARTED, PATIENT WILL SHOWER TODAY. ITEMS ARE SET UP FOR WHEN AHES READY,NO OTHER NEEDS
--- NOTE | 2019-10-01 11:32 | NUR ---
MIDLINE WAS PLACED BY FLORA INTO RAC. PT TOLERATED VERY WELL. SCHEDULED LASIX GIVEN. PT HOPES TO GET UP FOR SHOWER SHORTLY. IN GOOD SPIRITS. HR-50'S.
--- NOTE | 2019-10-01 11:38 | NUR ---
MIDLINE INSERTION NOTE: ASKED BY DR. LINN TO EVALUATE PATIENT FOR POTENTIAL MIDLINE PLACEMENT. PATIENT HAS POOR IV ACCESS AND HAS A HISTORY OF NEEDING CENTRAL LINES AND PICC LINES WHEN HOSPITALIZED. ESTIMATED BY PATIENT'S RN THAT PATIENT WILL ONLY NEED 3-4 MORE DAYS OF HOSPITALIZATION. REVIEWED PATIENT'S CHART AND NO ABSOLUTE CONTRAINDICATIONS WERE IDENTIFIED FOR MIDLINE INSERTION. PATIENT GIVES VERBAL CONSENT FOR MIDLINE. PATIENT'S RIGHT ARM WAS EVALUTED USING SITE RITE U/S AND HER BASILIC VEIN WAS FOUND TO BE GREATER THAN 8 FR AND A GOOD CANDIDATE FOR MIDLINE INSERTION. 18G 10 CM MIDLINE KIT WAS UTILIZED. AFTER FOLLOWING CDC RECOMMENDED GUIDELINES FOR STERILE PREP AND PROCEDURE, IV ACCESS WAS EASILY OBTAINED WITH POWERGLIDE PRO MIDLINE KIT. VEIN WAS ACCESSED WITHOUT DIFFICULTY. STERILE DRESSING AND STAT LOCK PLACED OVER SITE, WELL ANTIMICROBIAL PATCH. LINE FLUSHES EASILY AND ASPIRATES BLOOD EASILY. PATIENT WAS GIVEN INFORMATION REGARDING HER MIDLINE AND ENCOUARGED TO ASK QUESTIONS ABOUT IT.
--- NOTE | 2019-10-01 13:39 | NUR ---
VITALS AND I&OS CHARTED. PATIENT IN SHOWER, WILL CALL IF NEEDS ASSISTANCE
--- NOTE | 2019-10-01 13:43 | NUR ---
PT IS RESTING ON BED, STATES SHE FEELS MUCH BETTER AFTER SHOWER, DENIES ANY NEEDS.
--- NOTE | 2019-10-01 18:45 | NUR ---
PT FEELS SOME BETTER THIS AFTERNOON, SAT UP IN RECLINER FOR DINNER, DENIES ANY PAIN, STILL FEELS SOB WITH EXHERTION. MAINTAINING SATS ON O2 AT 2L/NC. MIDLINE IS SECURE.
--- NOTE | 2019-10-01 19:20 | NUR ---
SHIFT REPORT RECEIVED FROM BHAVANI SILVERIO. PT RESTING IN THE CHAIR. NC @ 2L. NO NEEDS AT THIS TIME. CALL LIGHT IN REACH.
--- NOTE | 2019-10-01 21:39 | NUR ---
ASSESSMENT COMPLETED. NC @ 2L. LUNGS CLEAR IN UPPER LOBES, DIMINISHED IN LOWER LOBES. TRACE EDEMA IN BLE. HR SR @ 72. BOWEL TONES ACTIVE. CBG 179, PT DECLINES LISPRO BUT TAKES HER 15 UNITS LANTUS. RN WILL MONITOR FOR SIGNS OF HYPERGLYCEMIA. OTHER SCHEDULED MEDS PROVIDED. NO OTHER NEEDS AT THIS TIME. CALL LIGHT IN REACH.
--- NOTE | 2019-10-01 23:32 | NUR ---
PT RESTING IN BED, EYES CLOSED. RR EVEN, UNLABORED. NC @ 2L. CALL LIGHT IN REACH.
--- NOTE | 2019-10-02 02:24 | NUR ---
PT AWAKE IN ROOM, READING A BOOK. NO NEEDS AT THIS TIME. CALL LIGHT IN REACH.
--- NOTE | 2019-10-02 04:08 | NUR ---
PT RESTING IN BED, EYES CLOSED. HR SB @ 52. RR EVEN, UNLABORED. NC @ 2L. CALL LIGHT IN REACH.
--- NOTE | 2019-10-02 06:04 | NUR ---
PT TELE BATTERY CHANGED. ASSESSMENT, VS AND I&O COMPLETED. LUNGS CLEAR IN UPPER LOBES, DIMINISHED IN LOWER LOBES. NC @ 2L. SOB WITH ACTIVITY. BOWEL TONES ACTIVE. TRACE EDEMA IN BLE. CMS INTACT. ORIENT X4. MIDLINE WNL. HR SR @ 64. DW 85.0kg, DOWN 0.9 kg FROM YESTERDAY. SCHEDULED MED PROVIDED. NO OTHER NEEDS AT THIS TIME. CALL LIGHT IN REACH.
--- NOTE | 2019-10-02 07:37 | NUR ---
RECEIVED REPORT FROM ALLEY SILVERIO. PT APPEARS TO BE RESTING COMFORTABLY AT THIS TIME WITH REPIRATIONS NOTED
--- NOTE | 2019-10-02 07:44 | NUR ---
PATIENT SLEEPING. WHITE BOARD UPDATED. CALL LIGHT WITHIN REACH. NO OTHER NEEDS AT THIS TIME
--- NOTE | 2019-10-02 09:30 | NUR ---
IN PTS ROOM TO GIVE MORNING MEDS AND DO MORNING ASSESSMENT. PT STATES THAT AT BASELINE SHE HAS SHORTNESS OF BREATH. PT STATES SHE IS TOLERATING HER SHORTNESS OF BREATH.
--- NOTE | 2019-10-02 10:04 | NUR ---
PATIENT SITTING UP IN BED. VITAL SIGNS DONE BY RN. I&O DONE. CALL LIGHT WITHIN REACH. NO OTHER NEEDS AT THIS TIME
--- NOTE | 2019-10-02 11:34 | NUR ---
THIS RN IN ROOM TO CHECK ON PT. PT STATES THAT SHE HAS NO NEEDS AT THIS TIME. PT LAYING IN BED READING HER BOOK
[2019-10-02] MEDS ORDERED: KLOR-CON M2020 MEQ PO (11:54)
[2019-10-02] MEDS ORDERED: BASAGLAR K100 UNIT/1 SUB-Q (11:55)
[2019-10-02] MEDS ORDERED: FUROSEMIDE80 MG PO (11:55)
[2019-10-02] MEDS ORDERED: METFORMIN HCL500 M1 PO (11:55)
[2019-10-02] MEDS ORDERED: ATROVENT HFA12.9 GM INH (12:05)
[2019-10-02] MEDS ORDERED: CLOTRIMAZOLE-BE15 GM TOP (12:43)
--- NOTE | 2019-10-02 13:48 | NUR ---
PATIENT SITTING UP IN BED. VITAL SIGNS AND I&O DONE. CALL LIGHT WITHIN REACH. NO OTHER NEEDS AT THIS TIME
--- NOTE | 2019-10-06 17:27 | NUR ---
Heart failure follow up call: Patient reports she is feeling better than yesterday, Just a has a tickle in throat possibly allergies. Reports scale battery is but daughter is going to replace. Denies edema or swelling. No questions or concerns about medication changes. Will follow up with Dr You on . Welcomed patient to contact this service for heart failure support and further education session
== END 2019-10-02 15:45 | disposition home or self-care (01) | DRG 292 ==
LOC: ED 17:53 → MS 17:54
PROVIDERS: ADMIT Internal Medicine
DX: I11.0 Hypertensive heart disease with heart failure (principal); I48.20 Chronic atrial fibrillation, unspecified; I50.33 Acute on chronic diastolic (congestive) heart failure; I48.0 Paroxysmal atrial fibrillation; R00.1 Bradycardia, unspecified; E11.649 Type 2 diabetes mellitus with hypoglycemia without coma; I25.10 Atherosclerotic heart disease of native coronary artery without angina pectoris; J44.9 Chronic obstructive pulmonary disease, unspecified; E78.5 Hyperlipidemia, unspecified; E03.9 Hypothyroidism, unspecified; K21.9 Gastro-esophageal reflux disease without esophagitis; Z20.828 Contact with and (suspected) exposure to other viral communicable diseases; Z79.4 Long term (current) use of insulin; Z87.891 Personal history of nicotine dependence; Z79.01 Long term (current) use of anticoagulants
CPT/HCPCS: 36415; 36569; 71045; 80048; 80053; 83735; 83880; 84484; 85025; 85379; 93005; 93010; 94760; 96374; 96376; 99285-25; C1751; C9803; G0378; J1815; J1940

== ENCOUNTER 2020-02-29 19:30 | Inpatient (IN) | payer MEDICARE, OTHER ==
[~2020-02-29] VITALS: Ht 157.5 cm; Wt 80.4 kg
[~2020-02-29 19:30] MED LIST changes: +AMIODARONE HCL200 MG PO; +ATROVENT HFA12.9 GM INH; +CLOTRIMAZOLE-BE15 GM TOP; +ELIQUIS5 MG PO
--- OUTSIDE RECORDS SUMMARY | 2020-02-29 19:32 | XMS ---
PreManage Notification: RENEE SEGURA Security Wood Router Events No recent Security Events currently on file CRITERIA MET - [facility] CARE PROVIDERS REYNA MEADOWS [facility] 10/10/2019-Current PHONE: [phone] Dean has no Care Guidelines for this patient. Marcie VISIT COUNT (12 MO.) 3 DEIRDRE Maldonado TOTAL 3 NOTE: Visits indicate total known visits. ED/UCC VISIT TRACKING (12 MO.) 02/29/2020 19:31 DEIRDRE Bro [place] TYPE: Emergency COMPLAINT: - SOB 09/28/2019 17:53 DEIRDRE Bro [place] TYPE: Emergency COMPLAINT: - SOB 05/30/2019 17:27 DEIRDRE Bro [place] TYPE: Emergency COMPLAINT: - ABDOMINAL PAIN INPATIENT VISIT TRACKING (12 MO.) 09/30/2019 10:12 DEIRDRE Wasserman TYPE: Medical Surgical COMPLAINT: - SOB DIAGNOSES: - Type 2 diabetes mellitus with hypoglycemia without coma - Type 2 diabetes mellitus with hypoglycemia without coma - Atherosclerotic heart disease of [place] coronary artery without angina pectoris - FDC (current) use of anticoagulants - Chronic atrial fibrillation, unspecified - Hypertensive heart disease with heart failure - Bradycardia, unspecified - Hypertensive heart disease with heart failure - Chronic obstructive pulmonary disease, unspecified - Chronic atrial fibrillation, unspecified - Gastro-esophageal reflux disease without esophagitis - Contact with and (suspected) exposure to other viral communicable diseases - Chronic obstructive pulmonary disease, unspecified - Hypothyroidism, unspecified - Hyperlipidemia, unspecified - Paroxysmal atrial fibrillation - regional intermodal truck driver (current) use of anticoagulants - Gastro-esophageal reflux disease without esophagitis - Acute on chronic diastolic (congestive) heart failure - regional intermodal truck driver (current) use of insulin - Contact with and (suspected) exposure to other viral communicable diseases - Bradycardia, unspecified - regional intermodal truck driver (current) use of insulin - Atherosclerotic heart disease of [place] coronary artery without angina pectoris - Personal history of nicotine dependence - Paroxysmal atrial fibrillation - Hypothyroidism, unspecified - Hyperlipidemia, unspecified - Personal history of nicotine dependence [facility]15 [facility] DIAGNOSES: - Supraventricular tachycardia - SVT - Hypomagnesemia 05/31/2019 20:31 [facility] DIAGNOSES: - Essential (primary) hypertension - Hyperlipidemia, unspecified - Chronic obstructive pulmonary disease, unspecified - chest pain s/p cholecystectomy - Obstructive sleep apnea (adult) (pediatric) - Acute ischemic heart disease, unspecified - Atherosclerotic heart disease of [place] coronary artery with unstable angina pectoris 05/31/2019 14:57 DEIRDRE Wasserman TYPE: Medical Surgical COMPLAINT: - CHOLECYSTITIS DIAGNOSES: - FDC (current) use of insulin - Chronic obstructive pulmonary disease, unspecified - Hypothyroidism, unspecified - Type 2 diabetes mellitus without complications - Other acute postprocedural pain - Heart failure, unspecified - Other acute postprocedural pain - regional intermodal truck driver (current) use of insulin - Other intermediate teacher (current) drug therapy - Allergy status to other drugs, medicaments and biological substances - Old myocardial infarction - Allergy status to penicillin - Hypertensive heart disease with heart failure - Personal history of nicotine dependence - Hypertensive heart disease with heart failure - Obstructive sleep apnea (adult) (pediatric) - Old myocardial infarction - Supraventricular tachycardia - Chronic obstructive pulmonary disease, unspecified - Personal history of nicotine dependence - Obstructive sleep apnea (adult) (pediatric) - Allergy status to sulfonamides - Allergy status to penicillin - Hyperlipidemia, unspecified - Gastro-esophageal reflux disease without esophagitis - Allergy status to sulfonamides - Acquired absence of other specified parts of digestive tract - Supraventricular tachycardia - Gastro-esophageal reflux disease without esophagitis - Acquired absence of other specified parts of digestive tract - Hyperlipidemia, unspecified - Hypothyroidism, unspecified - Allergy status to other drugs, medicaments and biological substances - Calculus of gallbladder with acute and chronic cholecystitis without obstruction - Heart failure, unspecified - Precordial pain - Type 2 diabetes mellitus without complications - FDC (current) use of aspirin - FDC (current) use of aspirin - Other fdc (current) drug therapy [email or web address]
[2020-02-29] MEDS ORDERED: METOPROLOL TART50 MG PO (19:54)
[2020-03-01] MEDS ORDERED: GLIPIZIDE ER2.5 MG PO (07:38)
[2020-03-01] MEDS ORDERED: BASAGLAR K100 UNIT/1 SUB-Q (11:22)
[2020-03-01] MEDS ORDERED: METFORMIN HCL500 M1 PO (11:22)
[2020-03-01] MEDS ORDERED: FUROSEMIDE80 MG PO (12:23)
--- NOTE | 2020-03-01 17:34 | EKG ---
[facility] [address] [facility] [place] [address] Signed Marked sinus bradycardia Cannot rule out Anterior infarct , age undetermined Abnormal ECG When compared with ECG of 28-SEP-2019 18:04, T wave inversion less evident in Lateral leads Confirmed by RICARDA PRESSLEY MD ([id number]) on 03/01/2020 5:34:36 PM Electronically Signed By: RICARDA PRESSLEY MD 03/01/20 1734 PATIENT NAME: RENEE SEGURA Electrocardiogram DATE OF : 45 PHYSICIAN: RICARDA PRESSLEY MD REPORT #: [id number] REPORT IS CONFIDENTIAL AND NOT TO BE RELEASED WITHOUT AUTHORIZATION
[2020-03-05] MEDS ORDERED: METOPROLOL TART25 MG PO (09:47)
[2020-03-05] MEDS ORDERED: TORSEMIDE100 MG PO (09:50)
== END 2020-03-05 11:30 | DRG 293 ==
LOC: ED 19:30 → MS 22:26
PROVIDERS: ADMIT Internal Medicine; ATTEND Internal Medicine
DX: I50.33 Acute on chronic diastolic (congestive) heart failure (principal); Z20.822 Contact with and (suspected) exposure to COVID-19; I25.10 Atherosclerotic heart disease of native coronary artery without angina pectoris; R00.1 Bradycardia, unspecified; I48.0 Paroxysmal atrial fibrillation; G47.33 Obstructive sleep apnea (adult) (pediatric); G47.34 Idiopathic sleep related nonobstructive alveolar hypoventilation; E03.9 Hypothyroidism, unspecified; E78.5 Hyperlipidemia, unspecified; K21.9 Gastro-esophageal reflux disease without esophagitis; E11.649 Type 2 diabetes mellitus with hypoglycemia without coma; Z87.891 Personal history of nicotine dependence; Z88.0 Allergy status to penicillin; Z88.2 Allergy status to sulfonamides; Z88.8 Allergy status to other drugs, medicaments and biological substances; Z79.01 Long term (current) use of anticoagulants; Z79.82 Long term (current) use of aspirin; Z79.4 Long term (current) use of insulin; Z79.899 Other long term (current) drug therapy
CPT/HCPCS: 36415; 71045; 80048; 80053; 83036; 83735; 83880; 84484; 85025; 93005; 93010; 94640; 94760; 96374; 97110; 97162; 99285-25; C9803; J1940; U0003

== ENCOUNTER 2021-05-14 21:01 | Emergency (ER) | payer MEDICARE, OTHER ==
[~2021-05-14] VITALS: Ht 157.5 cm; Wt 74.8 kg
[~2021-05-14 21:01] MED LIST changes: +METOPROLOL TART25 MG PO; +TORSEMIDE100 MG PO
[2021-05-14] MEDS ORDERED: LEVOTHYROXINE25 MC1 PO (21:27)
[2021-05-14] MEDS ORDERED: METOPROLOL SUCC50 MG PO (21:28)
--- NOTE | 2021-05-15 17:17 | EKG ---
[facility] [address] [facility] [place] [address] Signed Normal sinus rhythm T wave abnormality, consider lateral ischemia Abnormal ECG When compared with ECG of 11-APR-2020 16:09, Sinus rhythm has replaced Junctional rhythm Vent. rate has increased BY 53 BPM QRS duration has decreased T wave inversion less evident in Lateral leads QT has lengthened Confirmed by RICARDA PRESSLEY MD ([id number]) on 05/15/2021 5:17:01 PM Electronically Signed By: RICARDA PRESSLEY MD 05/15/21 1717 PATIENT NAME: RENEE SEGURA Electrocardiogram DATE OF : 45 PHYSICIAN: RICARDA PRESSLEY MD REPORT #: [id number] REPORT IS CONFIDENTIAL AND NOT TO BE RELEASED WITHOUT AUTHORIZATION
--- NOTE | 2021-05-15 17:17 | EKG ---
[facility] [address] [facility] [place] [address] Signed Normal sinus rhythm T wave abnormality, consider lateral ischemia Abnormal ECG When compared with ECG of 14-MAY-2021 21:09, (Unconfirmed) No significant change was found Confirmed by RICARDA PRESSLEY MD ([id number]) on 05/15/2021 5:17:09 PM Electronically Signed By: RICARDA PRESSLEY MD 05/15/21 1717 PATIENT NAME: RENEE SEGURA Electrocardiogram DATE OF : 45 PHYSICIAN: RICARDA PRESSLEY MD REPORT #: [id number] REPORT IS CONFIDENTIAL AND NOT TO BE RELEASED WITHOUT AUTHORIZATION
== END 2021-05-15 08:23 | disposition short-term general hospital (02) ==
LOC: ED 21:01
DX: I47.2 Ventricular tachycardia (principal); D64.9 Anemia, unspecified; E83.42 Hypomagnesemia; I21.4 Non-ST elevation (NSTEMI) myocardial infarction; E11.9 Type 2 diabetes mellitus without complications; I25.2 Old myocardial infarction; I11.0 Hypertensive heart disease with heart failure; I50.9 Heart failure, unspecified; E78.00 Pure hypercholesterolemia, unspecified; K21.9 Gastro-esophageal reflux disease without esophagitis; J44.9 Chronic obstructive pulmonary disease, unspecified; G47.30 Sleep apnea, unspecified; E03.9 Hypothyroidism, unspecified; Z88.0 Allergy status to penicillin; Z88.2 Allergy status to sulfonamides; Z88.8 Allergy status to other drugs, medicaments and biological substances; Z79.899 Other long term (current) drug therapy; Z79.84 Long term (current) use of oral hypoglycemic drugs; Z79.4 Long term (current) use of insulin; Z79.82 Long term (current) use of aspirin; Z79.01 Long term (current) use of anticoagulants; Z20.822 Contact with and (suspected) exposure to COVID-19
CPT/HCPCS: 36415; 71045; 74177; 80053; 83690; 83735; 84484; 85025; 93005; 93010; 96375; 96376; 99285-25; C1894; J1170; J2270; J2405; Q9967; U0003

== ENCOUNTER 2022-01-04 13:40 | Emergency (ER) | payer MEDICARE, OTHER ==
[~2022-01-04] VITALS: Ht 157.5 cm; Wt 75.1 kg
[~2022-01-04 13:40] MED LIST changes: +LEVOTHYROXINE25 MC1 PO; +METOPROLOL SUCC50 MG PO
[2022-01-04] MEDS ORDERED: LEVOTHYROXINE50 MCG PO (13:56)
[2022-01-04] MEDS ORDERED: LIOTHYRONINE SO5 MCG PO (13:56)
--- NOTE | 2022-01-04 15:26 | EKG ---
[facility] [address] [facility] [place] [address] Signed Normal sinus rhythm ST \T\ T wave abnormality, consider inferolateral ischemia Abnormal ECG No previous ECGs available Confirmed by DENISSE LINN MD ([id number]) on 01/04/2022 3:26:14 PM Electronically Signed By: DENISSE LINN MD 01/04/22 1526 PATIENT NAME: RENEE SEGURA Electrocardiogram DATE OF : 45 PHYSICIAN: DENISSE LINN MD REPORT #: [id number] REPORT IS CONFIDENTIAL AND NOT TO BE RELEASED WITHOUT AUTHORIZATION
== END 2022-01-04 17:40 | disposition home or self-care (01) ==
LOC: ED 13:40
DX: I48.91 Unspecified atrial fibrillation (principal); E11.9 Type 2 diabetes mellitus without complications; I11.0 Hypertensive heart disease with heart failure; I50.9 Heart failure, unspecified; E78.00 Pure hypercholesterolemia, unspecified; K21.9 Gastro-esophageal reflux disease without esophagitis; J44.9 Chronic obstructive pulmonary disease, unspecified; E03.9 Hypothyroidism, unspecified; G47.30 Sleep apnea, unspecified; I25.2 Old myocardial infarction; Z88.0 Allergy status to penicillin; Z88.2 Allergy status to sulfonamides; Z79.899 Other long term (current) drug therapy; Z79.4 Long term (current) use of insulin; Z79.82 Long term (current) use of aspirin; Z79.84 Long term (current) use of oral hypoglycemic drugs
CPT/HCPCS: 36415; 71045; 80053; 83735; 83880; 84484; 85025; 93005; 93010; 96374; 99285-25; J3475

== ENCOUNTER 2022-01-11 17:38 | Emergency (ER) | payer MEDICARE, OTHER ==
[~2022-01-11] VITALS: Ht 157.5 cm; Wt 77.3 kg
[~2022-01-11 17:38] MED LIST changes: +LEVOTHYROXINE50 MCG PO; +LIOTHYRONINE SO5 MCG PO
--- OUTSIDE RECORDS SUMMARY | 2022-01-11 17:46 | XMS ---
PreManage Notification: RENEE SEGURA Security Manager Of Operations Events No recent Security Events currently on file CRITERIA MET - [facility] - 2 Visits in 30 Days CARE PROVIDERS MICHELLE DENG Physical Medicine \T\ Rehabilitation Current PHONE: [phone] REYNA MEADOWS [facility] 10/10/2019-Current PHONE: Unknown DUSTY AMARO Emergency Medicine Current PHONE: [phone] DAVIDA RODRIGUEZ Family [facility] Current PHONE: Unknown Dean has no Care Guidelines for this patient. Marcie VISIT COUNT (12 MO.) 3 DEIRDRE Maldonado TOTAL 3 NOTE: Visits indicate total known visits. ED/UCC VISIT TRACKING (12 MO.) 01/11/2022 17:39 DEIRDRE Bro [place] TYPE: Emergency COMPLAINT: - PACEMAKER ISSUE 01/04/2022 13:40 DEIRDRE Bro OR TYPE: Emergency COMPLAINT: - CHEST PAIN DIAGNOSES: - Unspecified atrial fibrillation - Allergy status to sulfonamides - Chest pain, unspecified - Heart failure, unspecified - Allergy status to penicillin - Hypertensive heart disease with heart failure - Type 2 diabetes mellitus without complications - Other salvage determiner (current) drug therapy - Chronic obstructive pulmonary disease, unspecified - Sleep apnea, unspecified - group home (current) use of insulin - Pure hypercholesterolemia, unspecified - Old myocardial infarction - roasterman (current) use of oral hypoglycemic drugs - Hypothyroidism, unspecified - Gastro-esophageal reflux disease without esophagitis - roasterman (current) use of aspirin 05/14/2021 21:02 DEIRDRE Bro [place] TYPE: Emergency COMPLAINT: - CHEST PRESSURE DIAGNOSES: - Allergy status to penicillin - Hypomagnesemia - Other chest pain - Heart failure, unspecified - Old myocardial infarction - Other mcc (current) drug therapy - Chronic obstructive pulmonary disease, unspecified - Gastro-esophageal reflux disease without esophagitis - Pure hypercholesterolemia, unspecified - Allergy status to sulfonamides - Hypothyroidism, unspecified - roasterman (current) use of anticoagulants - Contact with and (suspected) exposure to COVID-19 - Non-ST elevation (NSTEMI) myocardial infarction - Hypertensive heart disease with heart failure - Sleep apnea, unspecified - Ventricular tachycardia - Allergy status to other drugs, medicaments and biological substances - group home (current) use of insulin - Type 2 diabetes mellitus without complications - Anemia, unspecified - group home (current) use of aspirin - roasterman (current) use of oral hypoglycemic drugs INPATIENT VISIT TRACKING (12 MO.) 12/02/2021 07:55 [facility] TYPE: Surgical Services DIAGNOSES: - Complete rotator cuff tear or rupture of right shoulder, not specified as traumatic - Acute on chronic diastolic (congestive) heart failure - Paroxysmal atrial fibrillation - Atherosclerotic heart disease of [place] coronary artery without angina pectoris - Anemia, unspecified - Hypomagnesemia - Other specified postprocedural states - Acute myocardial infarction, unspecified - Personal history of other infectious and parasitic diseases [facility] DIAGNOSES: - Unspecified atrial flutter - Other specified abnormalities of plasma proteins - Obstructive sleep apnea (adult) (pediatric) - defribulator firing - Chest pain, unspecified - Essential (primary) hypertension - Hypothyroidism, unspecified - Type 2 diabetes mellitus without complications - Encounter for adjustment and management of automatic implantable cardiac defibrillator - Paroxysmal atrial fibrillation - Atherosclerotic heart disease of [place] coronary artery without angina pectoris - Chronic obstructive pulmonary disease, unspecified [email or web address]
[2022-01-11] MEDS ORDERED: GLIPIZIDE ER2.5 MG PO (17:55)
[2022-01-11] MEDS ORDERED: DILTIAZEM ER240 MG PO (17:55)
[2022-01-11] MEDS ORDERED: OMEPRAZOLE20 MG PO (17:56)
--- NOTE | 2022-01-14 20:27 | EKG ---
[facility] [address] [facility] [place] [address] Signed Normal sinus rhythm ST \T\ T wave abnormality, consider lateral ischemia Abnormal ECG When compared with ECG of 04-JAN-2022 13:46, No significant change was found Confirmed by Titus Gonsalves MD () on 01/14/2022 8:27:26 PM Electronically Signed By: TITUS GONSALVES MD 01/14/222026 PATIENT NAME: RENEE SEGURA Electrocardiogram DATE OF : 45 PHYSICIAN: TITUS GONSALVES MD REPORT #: [id number] REPORT IS CONFIDENTIAL AND NOT TO BE RELEASED WITHOUT AUTHORIZATION
--- NOTE | 2022-01-14 20:32 | EKG ---
[facility] [address] [facility] [place] [address] Signed Atrial-paced rhythm T wave abnormality, consider lateral ischemia Abnormal ECG When compared with ECG of 11-JAN-2022 18:02, (Unconfirmed) Electronic atrial pacemaker has replaced Sinus rhythm Inverted T waves have replaced nonspecific T wave abnormality in Anterior leads Confirmed by Titus Gonsalves MD () on 01/14/2022 8:32:24 PM Electronically Signed By: TITUS GONSALVES MD 01/14/222031 PATIENT NAME: RENEE SEGURA Electrocardiogram DATE OF : 45 PHYSICIAN: TITUS GONSALVES MD REPORT #: [id number] REPORT IS CONFIDENTIAL AND NOT TO BE RELEASED WITHOUT AUTHORIZATION
== END 2022-01-12 05:38 | disposition home or self-care (01) ==
LOC: ED 17:38
DX: I49.9 Cardiac arrhythmia, unspecified (principal); Z95.810 Presence of automatic (implantable) cardiac defibrillator; E11.9 Type 2 diabetes mellitus without complications; I25.2 Old myocardial infarction; I11.0 Hypertensive heart disease with heart failure; I50.9 Heart failure, unspecified; K21.9 Gastro-esophageal reflux disease without esophagitis; J44.9 Chronic obstructive pulmonary disease, unspecified; G47.30 Sleep apnea, unspecified; E03.9 Hypothyroidism, unspecified; Z88.0 Allergy status to penicillin; Z79.899 Other long term (current) drug therapy; Z79.4 Long term (current) use of insulin; Z79.84 Long term (current) use of oral hypoglycemic drugs
CPT/HCPCS: 36415; 71045; 80048; 80053; 83735; 84484; 85025; 85610; 93005; 93010; 96365; 99285-25; J3475